=== PATIENT | male | born 1975 | race Caucasian/White ===

== ENCOUNTER 2017-03-29 13:56 | Emergency (ER) | payer OTHER ==
[~2017-03-29] VITALS: Ht 172.7 cm; Wt 136.1 kg
[2017-03-29 14:30] LABS: ABSOLUTE BASOPHIL COUNT 0.1 /CUMM (0.0-0.2); ABSOLUTE EOSINOPHIL COUNT 0.1 /CUMM (0.0-0.7); ABSOLUTE LYMPH COUNT 2.2 /CUMM (1.2-3.4); ABSOLUTE MONOCYTE COUNT 0.7 /CUMM (0.10-0.60); BASOPHIL % 0.6 % (0.0-2.0); EOSINOPHIL % 0.6 % (0-5); GRANULOCYTE % 72.3 % (42.2-75.2); HEMATOCRIT 48.1 % (42-52); MEAN CORPUSCULAR HGB 29.5 PG (27.0-31.0); MEAN CORPUSCULAR HGB CONC 33.8 G/DL (33.0-37.0); MEAN CORPUSCULAR VOLUME 87.2 FL (80.0-94.0); MEAN PLATELET VOLUME 7.2 FL (7.4-10.4); PLATELET COUNT 405 /CUMM (130-400); RBC DISTRIBUTION WIDTH 14.4 % (11.5-14.5); RED BLOOD CELL CT 5.51 /CUMM (4.70-6.10)
--- NOTE | 2017-03-29 15:11 | ED PSYCHIATRIC COMPLAINT ---
History of Present Illness General Chief Complaint: Psychiatric Related Complaint Stated Complaint: +SI Source: patient, family Exam Limitations: no limitations Vital Signs & Intake/Output Vital Signs & Intake/Output Vital Signs Date Time Temp Pulse Resp B/P B/P Pulse O2 O2 Flow FiO2 Mean Ox Delivery Rate 03/29 1902 98.8 69 188/100 03/29 1848 98.8 69 20 188/100 93 Room Air 03/29 1608 98.2 67 20 168/82 97 Room Air 03/29 1412 99 Room Air 03/29 1359 97.4 75 18 98 Room Air Allergies Coded Allergies: No Known Allergies (03/29/17) Reconcile Medications No Known Home Medications Triage Note: 41 Y/O MALE C/O SUICIDAL IDEATION "FOR A WHILE". STATES HE HAS HAD THESE THOUGHTS OVER THE LAST YEAR BUT THOUGHTS HAVE GOTTEN WORSE RECENTLY. DENIES HI. DENIES DRUG OR ALCOHOL USE. STATES HE IS EATING AND DRINKING "OK". STATES HE WAS ON ZOLOFT, ADDERAL, AND XANAX A FEW YEARS AGO BUT DOESNT FEEL ANYTHING HELPED. CALM AND COOPERATIVE Triage Nurses Notes Reviewed? yes Onset: Abrupt Timing: recent history Severity: moderate, severe HPI: 41-year-old male comes into emergency room accompanied by mother and . He is been having suicidal thoughts for the past year. He reports he has been living a live. Depressed. Patient owns guns. He has reported that he has placed a gun in his mouth on multiple occasions. Previous history of substance abuse. Denies any current alcohol or substance abuse. He reports that he will have some drinks intermittently and admits to binge drinking intermittently. Nothing seems to make the symptoms better or worse. Denies any other associated symptoms. Patient finally told his today and spoke with his parents and they brought him here to the hospital. (SAMUEL WILLINGHAM) Past History Travel History Traveled to [place] past 21 day No Medical History Any Pertinent Medical History? 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 No (SAMUEL WILLINGHAM) Review of Systems Review of Systems Constitutional: Reports: no symptoms, see HPI, chills, diaphoresis, fever, malaise, weakness, unexplained weight loss. EENTM: Reports: no symptoms. Respiratory: Reports: no symptoms. Cardiovascular: Reports: no symptoms. GI: Reports: no symptoms. Genitourinary: Reports: no symptoms. Musculoskeletal: Reports: no symptoms. Skin: Reports: no symptoms. Neurological/Psychological: Reports: see HPI. Hematologic/Endocrine: Reports: no symptoms. Immunologic/Allergic: Reports: no symptoms. All Other Systems: Reviewed and Negative (SAMUEL WILLINGHAM) Physical Exam Physical Exam General Appearance: well developed/nourished, mild distress Head: atraumatic Eyes: Bilateral: normal appearance. Ears, Nose, Throat: normal ENT inspection, hearing grossly normal Neck: normal inspection Respiratory: no respiratory distress Cardiovascular: regular rate/rhythm Extremities: normal range of motion Neurological/Psychiatric: awake, agitated, alert Behavoir/Eye Contact/Speech: cooperative Skin: intact, normal color, warm/dry SAD PERSONS SAD PERSONS Response Value Male Sex? yes 1 Depression/Hopelessness? yes 2 Previous Attempts/Psych Care yes 1 Excessive Ethanol/Drug Use? yes 1 Rational Thinking Loss? yes 2 Organized/Serious Attempt yes 2 Total 9 SAD PERSONS Done? yes (SAMUEL WILLINGHAM) Progress Differential Diagnosis: dementia, drug intoxication, drug overdose, drug withdrawal, electrolyte abnormality, encephalitis, hypoglycemia, hypothyroidism, IC hem/mass/tumor, meningitis, depression, anxiety, Plan of Care: Orders Procedure Date/time Status ED CRISIS PSYCH CONSULT 03/29 1510 Active URINE DRUG SCREEN FOR ER ONLY 03/29 1408 Complete ETHANOL 03/29 1407 Complete COMPREHENSIVE METABOLIC PANEL 03/29 1407 Complete CBC WITHOUT DIFFERENTIAL 03/29 1407 Complete Laboratory Tests 03/29/17 1421: Serum Alcohol < 10.0 03/29/17 1421: Anion Gap 11, Estimated GFR > 60, BUN/Creatinine Ratio 17.5, Glucose 94, Calcium 9.9, Total Bilirubin 0.4, AST 23, ALT 45, Alkaline Phosphatase 77, Total Protein 7.9, Albumin 4.4, Globulin 3.5, Albumin/Globulin Ratio 1.3, CBC w Diff NO MAN DIFF REQ, RBC 5.51, MCV 87.2, MCH 29.5, RDW 14.4, MPV 7.2 L, Gran % 72.3, Lymphocytes % 20.0 L, Monocytes % 6.5, Eosinophils % 0.6, Basophils % 0.6, Absolute Granulocytes 8.0 H, Absolute Lymphocytes 2.2, Absolute Monocytes 0.7 H, Absolute Eosinophils 0.1, Absolute Basophils 0.1, PUBS MCHC 33.8, Urine Opiates Screen < 100.00, Methadone Screen < 40, Barbiturate Screen < 60, Ur Phencyclidine Scrn < 6.00, Amphetamines Screen < 100, U Benzodiazepines Scrn < 85, Urine Cocaine Screen < 50, Urine Cannabis Screen < 5.00 6 PM PATIENT TRANSFERRED TO [facility]. DR MARY ADAM. (ADAMARIS ENCISO MD) Departure Departure Condition: Stable Clinical Impression Primary Impression: Major depression Referrals: ZEN GARY MD (PCP/Family) Departure Forms: Customer Survey General Discharge Information Prescriptions: Current Visit Scripts No Known Home Medications Comments Patient was seen by crisis. Patient will be admitted. Patient has to be a transfer due to no beds here at [facility]. Blood pressure elevated. Patient was ordered a dose of losartan prior to discharge. Patient is high risk. Unsafe to be at home. Patient owns weapons. (SAMUEL WILLINGHAM) Departure Time of Disposition: 1800 Disposition: [facility] PA/AIRPORT OPERATIONS SPECIALIST Co-Sign Statement Statement: ED Attending supervision documentation- [] I saw and evaluated the patient. I have also reviewed all the pertinent lab results and diagnostic results. I agree with the findings and the plan of care as documented in the PA's/AIRPORT OPERATIONS SPECIALIST's documentation. [X] I have reviewed the ED Record and agree with the PA's/AIRPORT OPERATIONS SPECIALIST's documentation. [] Additions or exceptions (if any) to the PAs/AIRPORT OPERATIONS SPECIALIST's note and plan are summarized below: [] (ADAMARIS ENCISO MD)
--- NOTE | 2017-03-29 16:11 | ED PSYCH CRISIS CONSULTATION ---
See Addendum Crisis Consult Basic Assessment Date of Consult: 03/29/17 Responsible Person/Accompanied By: Cristina and Abimbola Insurance Authorization: Insurance #1: Insurance name: [employer]. Phone number: Policy number: [id number] Group number: [id number] Authorization number: ED Provider: Patient's ED Provider: SAMUEL WILLINGHAM Primary Care Physician: Patient's PCP: COOKIE ELENA,ZEN Seymour PCP's Chief Complaint: Psychiatric Related Complaint Patient's Quote: " I don't want to be here anymore." Present Illness: Pt is 41 yo male brought to the ED accompanied by his and mother for suicidal ideation. Pt states he does not want to live anymmore and disclosed he has access to guns that he has put in his mouth ( loaded gun). His UTOX his negative for substance and BAL is negative for ETOH. Pt said his last drink of alcohol was this past weekend. He disclosed he does drink to excess and blacks out ( last black out was a couple weeks ago). Pt is a daily smoker 9 pack /day). He said he thinks about kiling himself about 3 x day. Pt presents as tearful, disheveled and hopeless. Pt could not identify triggers to his depression. He stated he has 1 suicide attempt over a year ago - OD by taking all of his xanax " it didn't work." Pt said he has hx of going to [facility] for counseling but stopped treatment. He said he struggles with ADL's , has not gone back to work at [employer], and sleeps all day on the couch. This internal communications writer spoke with - Abimbola and Cristina- mother. Both feel pt needs inpatient admission at this time. He has not been able to go to work for the past year . Abimbola said he has been lying to the family the past year about his depression. They have no kids and he has 1 sibiling ( sister in [place]) that he has been reconnecting with. They report the pt has been isolating and struggling with ADl's. Pt has hx of taking adderral and xanax for his anxiety. Abimbola reported she is removing all guns, lock boxes with guns from the home and bringing them to the mother's house. This case was reviewed with Dr. Mendenhall and pt meets inpatient criteria for mood stabilization and safety. Dr. Mendenhall recommends all guns be removed from the home for pt's safety . Abimbola and Cristina are aware of these recommendations and verbalized safety plan to this internal communications writer to remove all guns. Patient's Address: [address] [place] [address] Other Who Do You Live With? Spouse Family/Informants Interviewed: Abimbola -, Cristina - mother Allergies - Coded Allergies: No Known Allergies (03/29/17) Current Medications - No Known Home Medications Laboratory Results: Laboratory Tests 03/29/17 1421: Serum Alcohol < 10.0 03/29/17 1421: Anion Gap 11, Estimated GFR > 60, BUN/Creatinine Ratio 17.5, Glucose 94, Calcium 9.9, Total Bilirubin 0.4, AST 23, ALT 45, Alkaline Phosphatase 77, Total Protein 7.9, Albumin 4.4, Globulin 3.5, Albumin/Globulin Ratio 1.3, CBC w Diff NO MAN DIFF REQ, RBC 5.51, MCV 87.2, MCH 29.5, RDW 14.4, MPV 7.2 L, Gran % 72.3, Lymphocytes % 20.0 L, Monocytes % 6.5, Eosinophils % 0.6, Basophils % 0.6, Absolute Granulocytes 8.0 H, Absolute Lymphocytes 2.2, Absolute Monocytes 0.7 H, Absolute Eosinophils 0.1, Absolute Basophils 0.1, PUBS MCHC 33.8, Urine Opiates Screen < 100.00, Methadone Screen < 40, Barbiturate Screen < 60, Ur Phencyclidine Scrn < 6.00, Amphetamines Screen < 100, U Benzodiazepines Scrn < 85, Urine Cocaine Screen < 50, Urine Cannabis Screen < 5.00 Past History Past Medical History Neurological: NONE EENT: NONE Cardiovascular: hypertension Respiratory: asthma Gastrointestinal: NONE Hepatic: NONE Renal: NONE Musculoskeletal: NONE Psychiatric: anxiety, depression Endocrine: NONE Blood Disorders: NONE Cancer(s): NONE 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 Past Surgical History Surgical History: non-contributory Psychosocial History Strengths/Capabilities: pt is seeking help Physical Limitations (Interventions): none stated Psychiatric Treatment History Psych Treatment Psychiatric Treatment Yes Inpatient Treatment Yes Outpatient Treatment Yes Location of Treatment [facility] Reason for Treatment opiates and depression Dates of Treatment [id number] Response to Treatment poor Diagnosis by History: depression and opiate d/o Substance Use/Abuse History Drug Use/Abuse Substances Used/Abused Yes Substance Used/Abused Non-Prescribed Opiates Substance Abuse Treatment Substance Abuse Treatment Past Substance Abuse TX Yes Inpatient Treatment Yes Outpatient Treatment Yes Location of Treatment [facility] Reason for Treatment opiates and depression Dates of Treatment 2007, 2008 Response to Treatment poor Current Mental Status Mental Status Orientation: Person, Place, Situation Affect: Anxious, Angry, Depressed, Flat, Hopeless, Sad Speech: WNL Neuro-vegetative: Anhedonia, Appetite Decreased, Concentration Poor, Energy Decreased, Helpless, Loss of Interest Appearance Appearance- Dress/Hygiene: Pt is dressed in [facility] gown , hygiene fair, tattoos down arms Behaviors Thought Process: WNL Memory: Impaired Insight: Poor SI/HI Risk Assessment Past Suicidal Ideation/Attempts Yes Current Suicidal Ideation/Att Yes Past Homicidal Ideation/Att: No Current Homicidal Ideation/Attempts No Degree of Intent: States Intent, pt made significant gestures putting gun in his mouth Danger To: Self Gravely Disabled: Lack of Insight, Poor Impulse Control, Poor Judgment Risk Factors: access to lethal means, high anxiety/distress, history of suicide atmpts, SA/MH hospitalized, poor impulse control, male Lethality Ratin PTSD Checklist PTSD Done? 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 recommends all guns be removed from pt's house and is in agreement with safety plan. stated she is removing all guns. Departure Disposition Psych Medical Clearance Date: 03/29/17 Medically Cleared at: 1515 Time Started: 1515 Time Ended: 1545 Psychiatrist Consulted: Brodie Mendenhall MD Date Disposition Established: 03/29/17 Time Disposition Established: 3978 Plan for Disposition - Modality: Bed Search Rationale for Disposition: Pt endorses suicidal thoughts of wanting to end his life, putting loaded gun in his mouth. Pt presents with poor judgement/ insight and is a danger to himself. Case consulted with Dr. Mendenhall and meets inpatient criteria. Crisis is conducting bed search. Type of IP Admission: Voluntary Referrals COOKIE ELENA,ZEN Seymour (PCP/Family)
[2017-03-29 19:02] VITALS: BP 188/100
== END 2017-03-29 19:10 | disposition other institution (70) ==
LOC: ERH 13:56
PROVIDERS: Emergency Medicine
DX: F32.9 Major depressive disorder, single episode, unspecified (principal); F10.10 Alcohol abuse, uncomplicated
CPT/HCPCS: 80307; G0463; G0480; J2405